=== PATIENT | female | born 1965 | race Caucasian/White ===

== ENCOUNTER → 2017-05-13 | Outpatient (CLI) | payer OTHER ==
[~2017-05-13] MED LIST: ACETAMINOPHEN500 M5 PO; ALBUTEROL17 GM INH; ATROVENT HFA12.9 G1 INH; ATROVENT INH; AUGMENTIN875 M1 PO; BACTRIM DS TABL1 TA1 PO; CETIRIZINE HCL10 MG PO; CLINDAMYCIN HC300 MG PO; COZAAR100 MG PO; DAYPRO600 M1 PO; FLEXERIL10 MG PO; FLOVENT7.9 GM INH; GLIPIZIDE10 MG PO; HYDROCHLOROTH12.5 M1 PO; HYDROCHLOROTH12.5 MG PO; JANUVIA; JANUVIA PO; KEFLEX500 M1 PO; LASIX20 MG PO; LEVAQUIN PO; LEVOTHYROXINE150 MCG PO; LEVOTHYROXINE175 MCG PO; LOSARTAN POTAS100 MG PO; LOSARTAN-HCTZ1 EAC2 PO; MELOXICAM15 MG PO; MELOXICAM7.5 MG; MICATIN14 GM TOP; PRAVASTATIN SOD40 MG PO; SLEEP; SYMBICORT 16010.2 GM INH; SYMBICORT80 INH; TUMS500 M1; ZYRTEC10 M1 PO
--- NOTE | ~2017-05-13 | CR157 ---
[facility] A Service of [facility] & [facility] RADIOLOGY TEXT RESULTS PATIENT: TIARA GRAY LOCATION: [facility] : 63 UNIT #: [id number] AGE: [address]: Jair Sauceda MD SEX: F ORDER DR: [id number] [facility] [address] [place], [place] [address] [id number] O MR#: [id number] Acc #: [id number] NAME: TIARA GRAY : 1965 SEX: F STUDY DATE/TIME: 05/13/2017 13:45 UNIT: [facility] ROOM: STUDY DESCRIPTION: CR Humerus Min 2 View Rt Attending Physician: Jair Sauceda M.D. Referring Physician: Jair Sauceda M.D. Ordering Physician: Jair Sauceda M.D. Primary Care Physician: Jame Pina M.D. MEDICAL IMAGING REPORT This report is preliminary unless electronic signature is present EXAM Right humerus HISTORY Mass on the right arm noted, November 2016 TECHNIQUE Two views of the humerus were obtained. FINDINGS No bony abnormalities are seen. There is no evidence of fracture, bony hypertrophy or periosteal reaction. No soft tissue calcifications or foreign bodies are seen. There is fatty density noted over the anterior aspect of the arm in the midportion. If this corresponds to the patient's mass and is consistent with a lipoma. 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 No bony abnormalities are seen. Dictated by... Miguel Knight M.D. THIS IS AN ELECTRONICALLY VERIFIED REPORT Miguel Knight M.D. at 05/14/2017 4:55 PM LIZZIEF/abhi TD: 05/14/2017 15:08 JOB #: [id number] MEDICAL IMAGING REPORT Page 1 of 1 COPY
== END | disposition home or self-care (01) ==
LOC: CRAD 13:11
DX: R22.31 Localized swelling, mass and lump, right upper limb (principal)
CPT/HCPCS: 73060

== ENCOUNTER → 2017-05-31 | Outpatient (CLI) | payer OTHER ==
--- NOTE | ~2017-05-31 | MR88 ---
[facility] A Service of [facility] & [facility] RADIOLOGY TEXT RESULTS PATIENT: TIARA GRAY LOCATION: [facility] : 63 UNIT #: [id number] AGE: [address]: Jair Sauceda MD SEX: F ORDER DR: [id number] [address] [address] [id number] O MR#: [id number] Acc #: [id number] NAME: TIARA GRAY : 1965 SEX: F STUDY DATE/TIME: 05/31/2017 15:20 UNIT: [facility] ROOM: STUDY DESCRIPTION: MR Humerus WWo Contrast Rt Attending Physician: Jair Sauceda M.D. Referring Physician: Jair Sauceda M.D. Ordering Physician: Jair Sauceda M.D. Primary Care Physician: Jame Pina M.D. MRI CENTER REPORT This report is preliminary unless electronic signature is present. EXAM MRI of the right humerus with and without contrast. HISTORY 51-year-old female with a soft tissue mass mid aspect of upper arm, noticed December 2016. No redness, bruising, or swelling. COMPARISON Right humerus films 05/13/2017. TECHNIQUE Multiplanar, multiecho imaging was performed of the right upper arm utilizing a high field magnet and dedicated protocol. FINDINGS The examination demonstrates a soft tissue mass mid to distal aspect of the upper arm which appears partially intramuscular involving the biceps musculature. The mass measures a maximum of 9.8 x 5.3 cm in transverse dimensions and over 15 cm in cephalocaudal dimension. The lesion is isointense with fat on all sequences and fat suppresses on the fat suppressed images. No abnormal enhancement is noted postcontrast. 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 No encasement of the neural or vascular structures. Upper arm musculature unremarkable. Osseous structures appear normal. Generalized obesity. IMPRESSION MR confirms a soft tissue mass within the mid to distal upper arm with imaging features consistent with a typical lipoma. This resides partially within the lateral aspect of the biceps musculature. Given the size of the lesion, clinical followup may be warranted though no atypical features are identified. [facility] A Service of [facility] & [facility] RADIOLOGY TEXT RESULTS PATIENT: TIARA GRAY LOCATION: [facility] : 63 UNIT #: [id number] AGE: [address]: Jair Sauceda MD SEX: F ORDER DR: Dictated by... Bebeto Cuellar M.D. THIS IS AN ELECTRONICALLY VERIFIED REPORT Bebeto Cuellar M.D. at 06/04/2017 10:14 AM LUIS/willi TD: 06/03/2017 14:29 JOB #: [id number] MRI CENTER REPORT Page 1 of 1
[2017-05-31 17:10] LABS: POC - CREATININE 0.81 mg/dL (0.44-1.03); POC - GFR >60.0 mL/min (>60)
== END | disposition home or self-care (01) ==
LOC: SMRI 13:51
PROVIDERS: Orthopaedic Surgery
DX: R22.31 Localized swelling, mass and lump, right upper limb (principal)
CPT/HCPCS: 73220; 82565; A9581